=== PATIENT | female | born 1995 | race Caucasian/White ===

== ENCOUNTER 2017-12-21 20:07 | Emergency (ER) | payer OTHER ==
[~2017-12-21 20:07] MED LIST: IBUP600 PO; PRENTAB72 PO
[2017-12-21 20:09] VITALS: BP 137/88; PULSE 83; RESP 16; TEMP 98.5; O2SAT 99
[2017-12-21] MEDS ORDERED: FEXO15TA PO (20:29)
[2017-12-21] MEDS ORDERED: PRED-503 PO (20:29)
--- NOTE | 2017-12-21 20:34 | PD ---
HPI Chief Complaint: Skin Problem Time Seen by Provider: 20:23 Travel History International Travel<30 days: No Contact w/Intl Traveler<30days: No Traveled to known affect area: No History of Present Illness HPI 22-year-old white female presents to emergency Department with complaints of a progressive pruritic rash which she has noted initially on her feet up onto her lower legs, hands and forearms. This has been going on now since September. She states that she feels that this might be an allergic reaction to her copper IUD. She has not seen her journeyman glazier or primary care doctor as of yet. Patient works for [employer]. She denies any new chemicals or exposures. No recent illness. Patient states the rash is pruritic. No fever chills. PFSH Past Medical History Medical History: Denies Significant Hx Tetanus Vaccination: < 5 Years ?: Not LMP: 12/15/17 Past Surgical History Surgical History: No Previous Surgery Social History Alcohol Use: No Tobacco Use: No Allergies-Medications (Allergen,Severity, Reaction): Coded Allergies: Sulfa (Sulfonamide Antibiotics) (Unverified Allergy, Severe, ANAPHYLAXIS, 07/11/17) erythromycin base (Unverified Allergy, Severe, RASH, 07/11/17) iodine (Unverified Allergy, Severe, RASH, 07/11/17) potassium iodide (Unverified Allergy, Severe, RASH, 07/11/17) povidone-iodine (Unverified Allergy, Severe, RASH, 07/11/17) sodium iodide (Unverified Allergy, Severe, RASH, 07/11/17) sodium iodide (Unverified Allergy, Severe, RASH, 07/11/17) sulfisoxazole (Unverified Allergy, Severe, RASH, 07/11/17) Reported Meds & Prescriptions Reported Meds & Active Scripts Active Motrin 600 Mg Tab (Ibuprofen) 600 Mg Tab 600 Mg PO Q6H PRN Reported ( Vit W/ Ferrous Fumara) Tab 1 PO Review of Systems General / Constitutional: No: Fever Eyes: No: Visual changes HENT: No: Headaches Cardiovascular: No: Chest Pain or Discomfort Respiratory: No: Shortness of Breath Gastrointestinal: No: Abdominal Pain Genitourinary: No: Dysuria Musculoskeletal: No: Pain Skin: Positive Rash, Positive Itching, Positive Lumps, No Hives, No Change in nails Neurologic: No: Weakness Psychiatric: No: Depression Endocrine: No: Polydipsia Hematologic/Lymphatic: No: Easy Bruising Physical Exam Narrative GENERAL: Well-developed, well-nourished in no acute distress. Nontoxic appearing. HEAD: Normocephalic, atraumatic. EYES: Pupils equal round and reactive. Extraocular motions intact. No scleral icterus. No injection or drainage. ENT: TMs clear without erythema. The external auditory canals clear. Nose: clear . Posterior pharynx is pink and moist. No tonsillar edema or exudate. Uvula midline. Airway patent. NECK: Trachea midline.Supple, nontender, moves head freely. No central bony tenderness or spasm. CARDIOVASCULAR: Regular rate and rhythm without murmurs, gallops, or rubs. RESPIRATORY: Clear to auscultation. Breath sounds equal bilaterally. No wheezes , rales, or rhonchi. GASTROINTESTINAL: Abdomen soft, non-tender, nondistended. No hepato-splenomegaly , or palpable masses. No guarding. EXTREMITIES: No clubbing, cyanosis, or edema. No joint tenderness, effusion, or edema noted. BACK: Nontender without deformity or crepitance. No flank tenderness. Skin: Patient has scattered excoriated papular lesions on the dorsum of the feet , ankles and lower extremities. These are also on the hands, forearms and a few lesions on the posterior upper shoulders. There is no signs of secondary infection. There is no pustules or macules. No vesicles. Data Data Last Documented VS Vital Signs Date Time Temp Pulse Resp B/P (MAP) Pulse Ox O2 Delivery O2 Flow Rate FiO2 12/21/17 20:09 98.5 83 16 137/88 (104) 99 Room Air Orders Orders Ed Discharge Order (12/21/17 20:28) MDM Medical Decision Making Medical Screen Exam Complete: Yes Emergency Medical Condition: Yes Medical Record Reviewed: Yes Differential Diagnosis MDM: High Differential diagnoses: Abscess, folliculitis, cellulitis, lymphangitis, abrasion, contact dermatitis Narrative Course This appears be more of a contact type dermatitis. Patient has been advised to follow-up with her journeyman glazier as well as a electronic funds transfer coordinator for second opinion. Patient is given a prescription for Salud and prednisone. Diagnosis Primary Impression: contact dermatitis Patient Instructions: General Instructions Additional Instructions: Rest. May also use 1% hydrocortisone cream 3-4 times daily. Medications as directed. Follow-up with your journeyman glazier as soon as possible. Follow-up with a electronic funds transfer coordinator in the next 1-2 weeks. Return to the ER for emergencies. Med/Other Pt SpecificInfo: Prescription(s) given Scripts Prednisone (Deltasone) 20 Mg Tab 20 MG PO BID for 7 Days, #14 TAB 0 Refills Prov: Timur Herrera MD 12/21/17 Fexofenadine (Salud Allergy) 180 Mg Tab 180 MG PO DAILY for Allergy Management, #30 TAB 0 Refills Prov: Timur Herrera MD 12/21/17 Disposition: 01 DISCHARGE HOME Condition: Stable Quang Ellis Dec 21, 2017 20:34
== END 2017-12-21 20:38 | disposition home or self-care (01) ==
LOC: NEPD 20:07
DX: L25.9 Unspecified contact dermatitis, unspecified cause (principal)
CPT/HCPCS: 99284